=== PATIENT | male | born 1945 | race Caucasian/White ===

== ENCOUNTER 2025-05-08 08:59 | Emergency (ER) | payer MEDICARE, OTHER, SELFPAY ==
[2025-05-08] VITALS (16 sets, daily range): BP systolic 136–158; BP diastolic 73–85; PULSE 69–86; RESP 14–20; TEMP 36.3; O2SAT 89–98; BMI 19.2
--- OUTSIDE RECORDS SUMMARY | 2025-05-08 09:02 | XMS_ITS | Clinical Summary ---
Author Organization [facility] Address [address] [place] [address] Care Team Providers Care Vessel Scrapper Helper Name Role Phone Brian Vasquez DO Primary Care Provider [phone] Allergies No known active allergies Medications * This document contains information received from the source organization and may not represent a complete record from that organization. aspirin 325 mg tablet Take 1 tablet by mouth once daily with a meal. 0 0 Active hydrocortisone 2.5% creamIndication s:Rash Apply topically to affected area(s) 2 times daily. 60 g 1 Active niacinamide 500 mg tablet Take 1 Tablet (500 mg) by mouth once daily. 0 2 Active tamsulosin 0.4 mg capsuleIndicati ons:Nephrolithi asis Take 1 Capsule (0.4 mg) by mouth once daily after a meal. 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 Encounters Date Type Department Care Team Description 04/12/2025 Telephone [facility] [address] [place] [address] Arben Boggs MD Results 04/12/2025 Orders Only [facility] [address] Arben Boggs MD <No scans attached> 04/07/2025 11:00 AM CDT Ancillary Procedure [facility] [place] [address] 04/07/2025 Travel 04/03/2025 Telephone [facility] [address] Arben Boggs MD Results 03/31/2025 2:00 PM CDT Office Visit [facility] [address] [place] [address] Arben Boggs MD UTI (Dark urine ) 03/31/2025 Telephone [facility] [address] Arben Boggs MD Follow Up 03/31/2025 Travel 03/31/2025 Nurse Triage [facility] [address] Brian Vasquez, DO Blood In Urine from Last 3 Months Immunizations Immunization Administration Dates Next Due Inactivated Polio Vaccine 02/13/2023,08/08/2022, 06/02/2022 Influenza Virus, Unspecified 07/08/2018 Influenza, High-dose Inactivated 07/18/2017 Influenza, High-dose Quadriv alent Inactivated 06/25/2023,06/28/2022,07/12/2021 Influenza, IIV3 (Age >=3 years) 07/08/20 14,07/04/2012,08/01/2007,09/14 Influenza, IIV4 (=>6mos) MDV 07/16/2019 Influenza, Inactivated IIV3 (Age 65+ Years) Preserv Free 07/08/2017 Influenza, Injectable, Mdck, Quadrivalent, W/preservative 07/18/2018 Pneumococcal Poly,23-Valent (Pneumovax) 08/05/2012 Pneumococcal conj 13-Valent (Prevnar 13) 03/12/2017 RSV, Recombinant ADJ Reconst ituted (Arexvy 120MCG/0.5mL) 06/25/2023 Td (Age >=7 Years) 10/26/2004 Tdap 02/07/2011 Zoster (Shingrix-RZV, recombinant) 09/01/2019, Zoster (Zostavax-ZVL, live) 02/07/2011 Family History Medical History Relation Name Comments Cataracts Father Kidney nephrosis Father Diabetes Maternal Grandmother Cancer-breast Mother Kidney nephrosis Mother Other Other parkinsons dise ase-grandfather and uncle Relation Name Status Comments Father Maternal Grandmother Mother Other Social History Tobacco Use Types Packs/Day Years Used Date Smoking Tobacco: Never Smokeless Tobacco: Never Tobacco Cessation:Counseling Given: Yes Alcohol Use Standard Drinks/Week Comments Not Currently 0 (1 standard drink = 0.6 oz pure alcohol) social use - maybe 1 time a month PHQ-2 Answer Date Recorded PHQ-2 TOTAL SCORE 0 05/28/2024 Social Connections Answer Date Recorded Do you often feel lonely or isolated from those around you? 0 05/28/2024 Financial Resource Strain Answer Date R ecorded Difficulty of Paying Living Expenses 3 05/28/2024 Difficulty of Paying Living Expenses Not on file 05/28/2024 Food Insecurity Answer Date Recorded Do you worry your food will run out before you are able to buy more? 1 05/28/2024 Transportation Needs Answer Date Record ed Does lack of transportation keep you from medica l appointments? 1 05/28/2024 Does lack of transportation keep you from work, meetings or getting things that you need? 1 05/28/2024 Housing Stability Answer Date Recorded What is your housing situation today? 1 05/28/2024 Utilities Answer Date Recorded Do you have trouble paying f or utilities (for example, heat, electricity, water, phone)? 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 Gender Identity Not on file Sexual Orientation Not on file Occupation Industry Job Start Date Job End Date retired Not on file Not on file Not on file Obstetrics History Last Filed Vital Signs Vital Sign Reading Time Taken Comments Blood Pressure 108/64 03/31/2025 2:06 PM CDT Pulse 89 03/31/2025 2:06 PM CDT Temperature 36.4 C (97.5 F) 05/28/2024 10:06 AM CDT Respiratory Rate 15 12/13/2023 12:05 PM PUBLIC HEALTH PHYSICIAN Oxygen Saturation 94% 03/31/2025 2:06 PM CDT Inhaled Oxygen Concentration - - Weight 61.5 kg (135 lb 9.6 oz) 03/31/2025 2:06 P M CDT Height 176 cm (5' 9.3) 05/28/2024 10:06 AM CDT Body Mass Index 19.85 05/28/2024 10:06 AM CDT Plan of Treatment Upcoming Encounters Date Type Department Care Team (Late st Contact Info) Description 06/01/2025 8:30 AM CDT Office Visit [address] [address] Nelly Galeas PA [address] [place] [address] 06/02/2025 8:20 AM CDT Office Visit [facility] [address] [place] [address] Gary Chowdhury MD [address] [place] [address] Health Maintenance Due Date Last Done Comments Tetanus booster 02/07/2021 02/07/2011, 10/26/2004 BMI (ht and wt on same day) for age 18+ 05/28/2025 05/28/2024, 06/02/2022, 04/28/2021, Additional history exists Depression screening for age 12+ 05/28/2025 05/28/2024, 05/28/2024, 06/05/2022, Additional history exists Medicare Wellness for age 65+ 05/29/2025 05/28/2024, 06/02/2022, 04/28/2021, Additional history exists Influenza Vaccine (#1) 2025 9, 07/18/2018, 07/08/2018, Additional history exists Pneumococcal series for age 50+ Completed 03/12/2017, 08/05/2012 Zoster (shingles) series for age 50+ Completed 09/01/2019, 06/05/2019, 02/07/2011 RSV vaccine for adults or Completed 06/25/2023 COVID-19 vaccine series Completed 03/10/20, 08/25/2024, 07/12/2023, Additional history exists Hepatitis B series for 19+ Aged Out N o longer eligible based on patient's age to complete this topic Procedures Procedure Name Priority Date/Time Associated Diagnosis Comments CT ABDOMEN PELVIS UROGRAM WWO Routine 04/07/2025 11:30 AM CDT Hematuria, unspecified type COMP METABOLIC PANEL Routine 03/31/2025 3:29 PM CDT Proteinuria, unspecified type Bilirubinuria CBC W PLT NO DIFF Routine 03/31/2025 3:2 9 PM CDT Proteinuria, unspecified type Bilirubinuria URINALYSIS MACROSCOPIC - [facility] ONLY POC DIP ([facility]) Routine 03/31/2025 2:38 PM CDT Dark urine URINALYSIS MICROSCOPIC Routine 03/31/2025 2:37 PM CDT Dark urine URINE CULTURE Routine 03/31/2025 2:37 PM CDT Dark urine from Last 3 Months Results * CT ABDOMEN PELVIS UROGRAM O (04/07/2025 11:30 AM CDT) Anatomical Region Laterality Modality Abdomen, Pelvis, KIDNEYS, BLADDER Computed Tomography 2025 1:16 PM CDT Impressions 2025 1:16 PM CDT 1. No significant contrast within the ureters or within the urinary bladder. This limits evaluation. To consider cystoscopy/retrograde pyelogram for further evaluation. 2. Evidence of an 8 millimeter stone at the left ureterovesical junction. Multiple small nonobstructing left renal stones are also noted. No left hydronephrosis. 3. Multiple stones within the right kidney including a 12 millimeter stone within the renal pelvis. No right hydronephrosis. 4. Evidence of multiple small bladder stones. 5. Prominent prostate. Recommend correlation with PSA. Please note that all CT scans at this facility use dose modulation, iterative reconstruction, and/or weight-based dosing when appropriate to reduce radiation dose to as low as reasonably achievable. Dictated by Justin Hagan MD @ 2025 1:16:34 PM (Electronically Signed) Narrative 2025 1:16 PM CDT For Patients: As a result of the Cures Act, medical imaging exams and procedure reports are released immediately into your electronic medical record. You may view this report before your referring provider. If you have questions, please contact your health care provider. INDICATION: Hematuria. TECHNIQUE: CT abdomen and pelvis urogram without and with 100 cc Omnipaque 350 IV contrast. Contrast images were obtained in the nephrographic and delayed phases. COMPARISON: None. FINDINGS: There is mild scarring within the right kidney. The left kidney is grossly normal. 12 millimeter stone is seen within the right renal pelvis. There are multiple nonobstructing stones noted within the right kidney as well the largest measuring 11 millimeters. There are tiny stones noted within the left kidney measuring 3 millimeters. 8 millimeter stone is seen at the region of the left ureterovesical junction. Multiple other calcifications are seen within the region of the left ureter which are favored to represent phleboliths. Symmetric renal enhancement. There are small cysts within the kidneys. Additionally there are subcentimeter hypoattenuating lesions which are too small to further characterize. No hydronephrosis. Minimal opacification of the right ureter with contrast material. Minimal opacification the mid left ureter as well. This limits evaluation. The urinary bladder is distended. There is evidence of bladder stones the largest measuring 10 millimeters. Additionally there are subcentimeter calcifications along the anterior urinary bladder wall. No significant excreted contrast within the urinary bladder. The visualized lung bases are clear. A cyst is seen within the liver as well as subcentimeter hypoattenuating lesions which are too small to further characterize. The gallbladder is decompressed. No biliary ductal dilatation. Spleen is unremarkable. The pancreas is unremarkable. The adrenal glands are normal. Prominent prostate with mass effect on the posterior bladder wall. Indeterminate rectal thickening is noted not well evaluated on CT. The bowel is not well evaluated with clumped decompressed loops of small bowel noted within the left upper quadrant. No evidence of bowel obstruction. No free air or ascites. No definite lymphadenopathy. No acute fracture. Procedure Note Justin Hagan MD - 2025 For Patients: As a result of the Cures Act, medical imagingexams and procedure reports are released immediately into your electronicmedical record. You may view this report before your referring provider.If you have questions, please contact your health care provider. INDICATION: Hematuria. TECHNIQUE: CT abdomen and pelvis urogram without and with 100 cc Omnipaque 350 IVcontrast. Contrast images were obtained in the nephrographic and delayedphases. COMPARISON: None. FINDINGS: There is mild scarring within the right kidney. The left kidney is grosslynormal. 12 millimeter stone is seen within the right renal pelvis. Thereare multiple nonobstructing stones noted within the right kidney as wellthe largest measuring 11 millimeters. There are tiny stones noted withinthe left kidney measuring 3 millimeters. 8 millimeter stone is seen at theregion of the left ureterovesical junction. Multiple other calcificationsare seen within the region of the left ureter which are favored torepresent phleboliths. Symmetric renal enhancement. There are small cysts within the kidneys.Additionally there are subcentimeter hypoattenuating lesions which are toosmall to further characterize. No hydronephrosis. Minimal opacification of the right ureter with contrastmaterial. Minimal opacification the mid left ureter as well. This limitsevaluation. The urinary bladder is distended. There is evidence of bladder stones thelargest measuring 10 millimeters. Additionally there are subcentimetercalcifications along the anterior urinary bladder wall. No significantexcreted contrast within the urinary bladder. The visualized lung bases are clear. A cyst is seen within the liver aswell as subcentimeter hypoattenuating lesions which are too small tofurther characterize. The gallbladder is decompressed. No biliary ductaldilatation. Spleen is unremarkable. The pancreas is unremarkable. Theadrenal glands are normal. Prominent prostate with mass effect on theposterior bladder wall. Indeterminate rectal thickening is noted not wellevaluated on CT. The bowel is not well evaluated with clumped decompressedloops of small bowel noted within the left upper quadrant. No evidence ofbowel obstruction. No free air or ascites. No definite lymphadenopathy. Noacute fracture. IMPRESSION: 1. No significant contrast within the ureters or within the urinarybladder. This limits evaluation. To consider cystoscopy/retrogradepyelogram for further evaluation. 2. Evidence of an 8 millimeter stone at the left ureterovesical junction.Multiple small nonobstructing left renal stones are also noted. No lefthydronephrosis. 3. Multiple stones within the right kidney including a 12 millimeter stonewithin the renal pelvis. No right hydronephrosis. 4. Evidence of multiple small bladder stones. 5. Prominent prostate. Recommend correlation with PSA. Please note that all CT scans at this facility use dose modulation,iterative reconstruction, and/or weight-based dosing when appropriate toreduce radiation dose to as low as reasonably achievable. Dictated by Justin Hagan MD @ 2025 1:16:34 PM (Electronically Signed) us Arben Boggs MD CT Final Resu lt * (ABNORMAL) CBC W PLT NO DIFF (03/31/2025 3:29 PM CDT) WHITE BLOOD CELL COUNT 6.1 3.8 - 10.8 Thousand/u L [facility] RED BLOOD CELL COUNT 4.84 4.20 - 5.80 Million/uL [facility] HEMOGLOBIN 14.3 13.2 - 17.1 g/dL [facility] HEMATOCRIT 44.8 38.5 - 50.0 % [facility] MCV 92.6 80.0 - 100.0 fL [facility] MCH 29.5 27.0 - 33.0 pg [facility] MCHC 31.9(L) 32.0 - 36.0 g/dL [facility] Comment: For adults, a slight decrease in the calculated MCHC value (in the range of 30 to 32 g/dL) is most likely not clinically significant; however, it should be interpreted with caution in correlation with other red cell parameters and the patient's clinical condition. RDW 13.4 11.0 - 15.0 % [facility] PLATELET COUNT 200 140 - 400 Thousand/u L [facility] MPV 12.3 7.5 - 12.5 fL [facility] Blood BLOOD SPECIMEN / Unknown 03/31/2025 3:29 PM CDT 03/31/2025 3:30 PM CDT us Arben Boggs MD HEMATOLOGY Final Resu lt [facility] [address] [place] [address], [facility] [address] [place] [address] * COMP METABOLIC PANEL (03/31/2025 3:29 PM CDT) GLUCOSE 79 65 - 99 mg/dL [facility] Comment: Fasting reference interval UREA NITROGEN (BUN) 25 7 - 25 mg/dL [facility] CREATININE 0.96 0.70 - 1.28 mg/dL [facility] EGFR 80 > OR = 60 mL/min/1. 73m2 [facility] BUN/CREATININE RATIO SEE NOTE: 6 - 22 (calc) [facility] Comment: Not Reported: BUN and Creatinine are within reference range. SODIUM 140 135 - 146 mmol/L [facility] POTASSIUM 4.7 3.5 - 5.3 mmol/L [facility] CHLORIDE 103 98 - 110 mmol/L [facility] CARBON DIOXIDE 28 20 - 32 mmol/L [facility] CALCIUM 9.0 8.6 - 10.3 mg/dL [facility] PROTEIN, TOTAL 6.6 6.1 - 8.1 g/dL [facility] ALBUMIN 3.8 3.6 - 5.1 g/dL [facility] GLOBULIN 2.8 1.9 - 3.7 g/dL (calc) [facility] ALBUMIN/GLOBULIN RATIO 1.4 1.0 - 2.5 (calc) [facility] BILIRUBIN, TOTAL 0.5 0.2 - 1.2 mg/dL [facility] ALKALINE PHOSPHATASE 40 35 - 144 U/L [facility] AST 17 10 - 35 U/L [facility] ALT 10 9 - 46 U/L [facility] Blood BLOOD SPECIMEN / Unknown 03/31/2025 3:29 PM CDT 03/31/2025 3:30 PM CDT Arben Boggs MD CHEMISTRY Final Resu lt Performing Organization Address City/[facility]/ZIP Co de Phone Number [facility] [address] [place] [address], [facility] [address] [place] [address] * (ABNORMAL) POCT Urinalysis Dipstick Only [[id number]] (03/31/2025 2:38 PM CDT) Pathologist [facility] PH 6.0 5.0 - 8.0 [facility] SPECIFIC GRAVITY 1.025 1.001 - 1.035 [facility] GLUCOSE NEGATIVE NEGATIVE [facility] BILIRUBIN 1+(A) NEGATIVE [facility] Comment: A false positive may be caused by the drug Lodine. For any presumptive positive bilirubin, consider confirmation by serum bilirubin if clinically indicated. KETONES NEGATIVE NEGATIVE [facility] OCCULT BLOOD 3+(A) NEGATIVE [facility] PROTEIN 3+(A) NEGATIVE [facility] NITRITE NEGATIVE NEGATIVE [facility] LEUKOCYTE ESTERASE NEGATIVE NEGATIVE [facility] Urine URINE SPECIMEN / Unknown 03/31/2025 2:38 PM CDT 03/31/2025 2:38 PM CDT Arben Boggs MD URINE Final Resu lt Performing Organization Address City/[facility]/ZIP Co de Phone Number [facility] [address] [place] [address], [facility] [address] [place] [address] * (ABNORMAL) URINALYSIS MICROSCOPIC [[id number]] - routine (03/31/2025 2:37 PM CDT) RBC >100(A) 0-2, None Seen /HPF 04/01/2025 1:[address] [facility] WBC 6-10(A) 0-2, 3-5, None Seen /HPF 04/01/2025 1:[address] [facility] BACTERIA None Seen None Seen, Rare, Few Bacteria/ HPF 04/01/2025 1:[address] [facility] EPITHELIAL CELLS None Seen None Seen, Few Epi/HPF 04/01/2025 1:[address] [facility] HYALINE CASTS 0-2 0-2, 3-5 /LPF 04/01/2025 1:[address] [facility] Urine URINE SPECIMEN / Unknown Non-Blood / Unknown 03/31/2025 2:37 PM CDT 03/31/2025 2:37 PM CDT Arben Boggs MD URINE Final Resu lt Performing Organization Address City/State/[facility] Co de Phone Number [facility] [address] [place] [address], * URINE CULTURE [[id number]] (03/31/2025 2:37 PM CDT) CULTURE <10,000 CFU/mL multiple organisms 04/02/2025 10:44 AM CDT [facility] Urine URINE SPECIMEN / Unknown Non-Blood / Unknown 03/31/2025 2:37 PM CDT 03/31/2025 2:37 PM CDT Arben Boggs MD MICROBIOLOGY Final Resu lt [facility] [address] [place] [address], [place] from Last 3 Months Insurance MEDICARE PB ONLY MEDICARE PART A HB ONLY Care Teams Vessel Scrapper Helper Relationship Specialty Start Date End [place] [address] PCP - General Family Practice 06/02/22
--- NOTE | 2025-05-08 09:56 | ED_ITS ---
HPI - General Adult General Chief complaint: Flank Pain Stated complaint: Kidney stone Time Seen by Provider: 05/08/25 09:34 History of Present Illness HPI narrative: Patient here with right lower abdominal pain, has a known kidney stone on that side diagnosed a month ago through an [facility] site. 80-year-old man presenting to the emergency department with continued right lower abdominal pain following diagnosis of an 8 mm stone at the right ureteral vesicular junction in a CT scan from April 07. Symptoms seem to have begun with dark urine on March 30. Duration of symptoms now about 5 weeks. He continues to have pretty intense pain, cramping at the right low abdomen. Intermittent bouts of nausea. No fever. Urine seems to have cleared. He continues to urinate regularly. No history of heart failure. Related Data Home Medications ?Medication ?Instructions ?Recorded ?Confirmed aspirin 325 mg capsule 325 mg PO DAILY 05/08/2511/01 tamsulosin 0.4 mg capsule 0.4 mg PO DAILY 05/08/2511/01 Allergies Allergy/AdvReac Type Severity Reaction Status Date / Time No Known Drug Allergies Allergy Verified 05/08/25 09:19 Review of Systems Status of ROS: Reports: 6 or more systems reviewed and unremarkable except as noted in History and below Exam Narrative: Exam Narrative: Pleasant. Slim. Hand resting at his right low abdomen. Skin is warm and dry. Well-perfused peripherally. No extremity edema. Breathing easily. Heart in regular rate and rhythm. Abdomen is soft flat. He is moderately tender to palpation in the right low abdomen. Without peritoneal signs. Const: Vital Signs, click to edit/add: Vital Signs - 24 hr 05/08/25 09:24 05/08/25 10:36 05/08/25 10:41 Temperature 97.3 F L Pulse Rate 81 81 Pulse Rate [Pulse Oximeter] 69 Respiratory Rate 20 Blood Pressure 153/85 H Blood Pressure [Ri ght Upper Arm] 158/82 H Pulse Oximetry 95 98 95 Oxygen Delivery Me thod Room Air 05/08/25 10:45 05/08/25 11:00 05/08/25 11:02 Temperature Pulse Rate 82 78 82 Pulse Rate [Pulse Oximeter] Respiratory Rate 14 Blood Pressure 141/76 H Blood Pressure [Ri ght Upper Arm] Pulse Oximetry 89 95 96 Oxygen Delivery Me thod 05/08/25 11:15 05/08/25 11:22 05/08/25 11:30 Temperature Pulse Rate 80 73 86 Pulse Rate [Pulse Oximeter] Respiratory Rate Blood Pressure 139/77 Blood Pressure [Ri ght Upper Arm] Pulse Oximetry 94 97 95 Oxygen Delivery Me thod 05/08/25 11:41 05/08/25 11:45 05/08/25 12:00 Temperature Pulse Rate 73 72 72 Pulse Rate [Pulse Oximeter] Respiratory Rate Blood Pressure 136/73 Blood Pressure [Ri ght Upper Arm] Pulse Oximetry 96 97 96 Oxygen Delivery Me thod 05/08/25 12:02 05/08/25 12:03 05/08/25 12:15 Temperature Pulse Rate 78 78 78 Pulse Rate [Pulse Oximeter] Respiratory Rate 16 Blood Pressure 147/78 H Blood Pressure [Ri ght Upper Arm] Pulse Oximetry 96 96 96 Oxygen Delivery Me thod 05/08/25 12:22 Temperature Pulse Rate 79 Pulse Rate [Pulse Oximeter] Respiratory Rate Blood Pressure 142/76 H Blood Pressure [Ri ght Upper Arm] Pulse Oximetry 96 Oxygen Delivery Me thod Documenting provider has reviewed patient's vital signs: yes Course Vital Signs Vital signs: Initial Vital Signs Temperature 97.3 F L 05/08/25 09:24 Temperature Source Temporal Artery Scan 05/08/25 09:24 Pulse Rate 69 05/08/25 09:24 Pulse Rhythm Regular 05/08/25 09:24 Respiratory Rate 20 05/08/25 09:24 Blood Pressure 158/82 H 05/08/25 09:24 Blood Pressure Mean 107 H 05/08/25 09:24 Blood Pressure Position Sitting 05/08/25 09:24 Pulse Oximetry 95 05/08/25 09:24 Oxygen Delivery Method Room Air 05/08/25 09:24 Vital Signs Temperature 97.3 F L 05/08/25 09:24 Pulse Rate 69 05/08/25 09:24 Respiratory Rate 20 05/08/25 09:24 Blood Pressure 158/82 H 05/08/25 09:24 Pulse Oximetry 95 05/08/25 09:24 Oxygen Delivery Method Room Air 05/08/25 09:24 Temperature 97.3 F L 05/08/25 09:24 Pulse Rate 79 05/08/25 12:22 Respiratory Rate 16 05/08/25 12:02 Blood Pressure 142/76 H 05/08/25 12:22 Pulse Oximetry 96 08/01/25 12:22 Oxygen Delivery Method Room Air 05/08/25 09:24 Medications Administered Medications: Discontinued Medications Generic Name Dose Route Start Last Admin Trade Name Kendra PRN Reason Stop Dose Admin Sodium Chloride 1,000 mls @ 1,000 mls/hr 05/08/25 10:05 05/08/25 11:25 0.9 % Sodium Chloride 1000 Ml IV 05/08/25 11:04 Infused .Q1H ONE Infusion Ketorolac Tromethamine 30 mg 05/08/25 10:05 05/08/25 10:28 Ketorolac 30 Mg/Ml Inj IVP 05/08/25 10:06 30 mg ONCE ONE Administration Morphine Sulfate 4 mg 05/08/25 10:05/08/25 10:28 Morphine 4 Mg/Ml Inj IVP 05/08/25 10:06 4 mg ONCE ONE Administration Medical Decision Making MDM Narrative Medical decision making narrative: Duration of pain and location is consistent with imaging and likely kidney stone. I suppose appendicitis could be in differential as well but likely clinically. Will try to verify persistent presence of stone maybe start with a KUB and check labs for renal function and potential infection. Sounds like will need some procedural/surgical intervention here. The, normal saline, ketorolac, morphine. Does not feel he needs anything for nausea at this time. KUB independent reviewed by me looks to show number phleboliths. I do measure out what I think is is likely ureteral stone in the right pelvis. Measures approximately 8 mm. Radiology noting it to be inconclusive. Labs are generally reassuring, without evidence of infection and pain is markedly improved with treatment as above. Feels he can discharge home. I did manage to reach Dr. Mahmood with [facility] the likely the group that is seeing Mr. Zhang in [place] on June 04. They will reach out to arrange more urgent intervention. Recommending ketorolac. See patient discharge plan for further discussion I discussed your case with Dr. Mahmood with [facility] today. Expect a call from them to schedule you for procedure this coming week. In the meantime am prescribing you some ketorolac similar to ibuprofen for pain. Also some [place] from [facility]. This is an opiate. Remember that each tablet contains 325 mg of acetaminophen. Continue with your Flomax (tamsulosin) pending stone passage. Should you have uncontrolled pain, fever, please return Medical Records Medical records reviewed: Yes I reviewed the patient's medical records Lab Data Lab results reviewed: Yes I reviewed the patient's lab results Labs: Lab Results 05/08/25 05/08/25 Range/Units 10:15 12:34 WBC 8.09 (4.50-11.00) K/uL RBC 5.03 (4.30-5.90) m/uL Hgb 15.0 (13.5-17.5) gm/dL Hct 46.2 (37.0-53.0) % MCV 92 (80-100) fL MCH 30 (26-34) pg MCHC 33 (32-36) gm/dL RDW Coeff of James 13.7 (11.5-15.5) % Plt Count 192 (140-440) K/uL Neut % (Auto) 78.4 H (42.0-72.0) % Lymph % (Auto) 11.2 L (20-44) % [place] % (Auto) 6.3 (0.0-11.0) % Eos % (Auto) 3.6 (0.0-7.0) % Baso % (Auto) 0.4 (0.0-3.0) % Neut # (Auto) 6.30 (1.7-7.0) K/uL Lymph # (Auto) 0.90 (0.90-2.90) K/uL [place] # (Auto) 0.50 (0.00-0.90) K/UL Eos # (Auto) 0.29 (0.00-0.50) K/uL Baso # (Auto) 0.03 (0.00-0.30) K/uL Abs Immat Gran (auto) 0.01 (0.00-0.30) K/uL Imm/Tot Granulo (auto) 0.1 % Sodium 138 (135-149) mmol/L Potassium 4.0 (3.6-5.1) mmol/L Chloride 103 (96-114) mmol/L Carbon Dioxide 27 (20-32) mmol/L Anion Gap 8 (7-15) mEq/L BUN 23 (7-30) mg/dL Creatinine 0.9 (0.5-1.5) mg/dL Estimated Creat Clear 49.14 Estimated GFR 86 ml/min Glucose 122 H (60-115) mg/dL Calcium 9.1 (8.4-10.6) mg/dL Urine Color Yellow (Yellow) Urine Appearance Clear (Clear) Urine pH 6.5 (5.0-8.5) Ur Specific [place] 1.020 (1.000-1.030) Urine Protein Negative (Negative) Urine Glucose (UA) Negative (Negative) Urine Ketones 3+ A (Negative) Urine Blood Negative (Negative) Urine Nitrite Negative (Negative) Urine Bilirubin Negative (Negative) Urine Urobilinogen 0.2 (0.2-1.0) Ur Leukocyte Esterase Negative (Negative) Urine RBC 0-2 (0-2) Urine WBC 0-2 (0-5) Ur Squamous Epith Cells None (None-Few) Urine Bacteria None (None) Discharge Plan Discharge Clinical Impression: Right distal ureteral calculus, Ureteral colic Patient Disposition: Home w/ Parent or Adult Condition: Improved Additional Instructions: I discussed your case with Dr. Mahmood with [facility] today. Expect a call from them to schedule you for procedure this coming week. In the meantime am prescribing you some ketorolac similar to ibuprofen for pain. Also some [place] from [facility]. This is an opiate. Remember that each tablet contains 325 mg of acetaminophen. Continue with your Flomax (tamsulosin) pending stone passage. Should you have uncontrolled pain, fever, please return Prescriptions: No Action tamsulosin 0.4 mg capsule 0.4 mg PO DAILY aspirin 325 mg capsule 325 mg PO DAILY Follow Up/Referrals: Gary Chowdhury MD [Primary Care Provider, [facility]] Stand Alone Forms: [employer] Info Instructions
--- NOTE | 2025-05-08 10:05 | CRLHL7_ITS ---
For Patients: As a result of the Century Cures Act, medical imaging exams and procedure reports are released immediately into your electronic medical record. You may view this report before your referring provider. If you have questions, please contact your health care provider. INDICATION: Right-sided abdominal pain, confirm stone at right ureterovesicular junction. COMPARISON: CT 04/09/2025 TECHNIQUE: 1 view abdomen, supine. FINDINGS: Devices: None. Moderate stool. No dilated bowel. No unusual mass effect. Prior hernia repair with mesh. There are several nonobstructing right renal calculi. There are extensive phleboliths in the pelvis. No definite right ureterovesicular junction distribution calcification. IMPRESSION: Exam confounded by pelvic phleboliths. No definite calculus seen at the level of the right ureterovesicular junction. Dictated by Tayler Stoll MD @ 05/08/2025 10:42:20 AM (Electronically Signed)
[2025-05-08 10:26] LABS: Hematocrit 46.2 % (37.0-53.0); Hemoglobin* 15.0 gm/dL (13.5-17.5); Mean Corpuscular HGB Conc 33 gm/dL (32-36); Mean Corpuscular Hemoglobin 30 pg (26-34); Mean Corpuscular Volume 92 fL (80-100); RDW Coefficient of Variation % 13.7 % (11.5-15.5); Red Blood Count 5.03 m/uL (4.30-5.90); White Blood Count* 8.09 K/uL (4.50-11.00)
[2025-05-08 10:27] LABS: Immature Granulocytes Abs Auto 0.01 K/uL (0.00-0.30); Immature Granulocytes Pct Auto 0.1 %
[2025-05-08] MEDS: MORPHINE 4 MG/ML INJ IVP (10:28)
[2025-05-08 10:37] LABS: Lymphocytes Absolute Auto 0.90 K/uL (0.90-2.90); Slide Review Reflex No
[2025-05-08 10:44] LABS: Chloride* 103 mmol/L (96-114)
[2025-05-08 10:45] LABS: Potassium* 4.0 mmol/L (3.6-5.1); Sodium* 138 mmol/L (135-149)
[2025-05-08 10:47] LABS: Blood Urea Nitrogen* 23 mg/dL (7-30); Creatinine* 0.9 mg/dL (0.5-1.5); Est. Creatinine Clearance* 49.14; Estimated Glomerular Filt Rate 86 ml/min
[2025-05-08 10:48] LABS: Anion Gap 8 mEq/L (7-15); Calcium* 9.1 mg/dL (8.4-10.6); Carbon Dioxide* 27 mmol/L (20-32); Glucose* 122 mg/dL (60-115)
[2025-05-08 12:41] LABS: Appearance Urine Clear (Clear)
== END 2025-05-08 13:21 | disposition home or self-care (01) ==
PROVIDERS: Emergency Provider Family Medicine; PCP Family Medicine
DX: N20.1 Calculus of ureter (principal)
CPT/HCPCS: 36415; 74018; 80048; 81001; 85025; 94761; 96374; 96375; 99284; J1885; J2270; J7030

== ENCOUNTER 2025-06-19 01:32 | Emergency (ER) | payer MEDICARE, OTHER, SELFPAY ==
--- OUTSIDE RECORDS SUMMARY | 2025-06-19 01:34 | XMS_ITS | Clinical Summary ---
Author Organization [employer] [facility] Address [address] [place] [address] Care Team Providers Care Glaze Carrier Name Role Phone Nelly Galeas Unavailable [phone] Gary Chowdhury MD Primary Care Provider + Allergies No known active allergies Medications * This document contains information received from the source organization and may not represent a complete record from that organization. aspirin 325 mg tablet Take 1 tablet by mouth once daily with a meal. 0 0 Active hydrocortisone 2.5% creamIndicatio ns:Rash Apply topically to affected area(s) 2 times daily. 60 g 1 Active niacinamide 500 mg tablet Take 1 Tablet (500 mg) by mouth once daily. 0 2 Active timoloL maleate (TIMOPTIC) 0.25 % ophthalmic solution Place 1 Drop into right eye two times daily. 5 Active tamsulosin (Flomax) 0.4 mg capsuleIndicat ions:Lower urinary tract symptoms (LUTS),Incompl ete emptying of bladder Take 1 Capsule (0.4 mg) by mouth once daily after a meal. 90 Capsule 3 5 Active ketoconazole 2% shampoo (NIZORAL) 2 % shampoo As directed 1 Dose 2 times daily if needed (when showering). 5 Active mupirocin 2% ointment Apply 1 Dose topically to affected area(s) once daily if needed (as needed). 5 Active oxybutynin (DITROPAN) 5 mg tabletIndicati ons:Bladder spasm Take 1 Tablet (5 mg) by mouth three times daily. 15 Tablet 5 Active tamsulosin 0.4 mg capsuleIndicat ions:Nephrolit hiasis Take 1 Capsule (0.4 mg) by mouth once daily after a meal. 30 Capsule 5 06/02/20 25 Discontinue d(Duplicate therapy (E-cancel not sent)) Active Problems Problem Noted Date Diagnosed Date Colon polyp 05/21/2012 Overview (12/14/2023): Colonoscopy 05/2012 polyp repeat in 5 years Colonoscopy 11/2018 normal, repeat in 5 years Colonoscopy 12/2023 SSA, repeat in 5 years Vasomotor rhinitis 08/19/2009 Insomnia, unspecified 08/19/2009 Headache(784.0) 08/16/2009 Calculus of kidney 05/22/2007 Encounters Date Type Department Care Team Description 06/12/2025 1:14 PM CDT Anesthesia Event [address] [address] Ronnie Lisa DO [place], Lindsey Jo, CRNA 06/12/2025 11:45 AM CDT - 06/12/2025 12:47 PM CDT Surgery [address] [address] Wayne Love MD Cystoscopy, bilateral ureteroscopy, Right laser lithotripsy, bilateral ureteral stent placement and bilateral retrograde pyelogram 06/12/2025 9:45 AM CDT - 06/12/2025 4:25 PM CDT Hospital Encounter [address] [address] Wayne Love MD Bladder spasm (Primary Dx) Discharge Disposition: Home Self Care 06/12/2025 9:42 AM CDT - 06/12/2025 9:43 AM CDT Emergency [address] [address] 06/12/2025 Orders Only [facility] [address] [place] [address] Nelly Galeas PA <No scans attached> 06/12/2025 Travel 06/02/2025 8:20 AM CDT Office Visit [facility] [address] [place] [address] Gary Chowdhury MD Medicare ANNUAL (subsequent) Visit (80 year old male); Preoperative Exam (06/12/25, kidney stones, Mary Tanika) 06/01/2025 9:55 AM CDT - 06/01/2025 11:59 PM CDT Hospital Encounter [facility] [address] [place] [address] Nelly Galeas PA Left ureteral stone 06/01/2025 8:30 AM CDT Office Visit [facility] [address] [place] [address] Nelly Galeas PA Consult (N20.0 (ICD-10-CM) - Nephrolithiasis) 06/01/2025 Travel 05/14/2025 Telephone [facility] [address] [place] [address] Brian Vasquez, DO Questions 04/12/2025 Telephone [facility] [address] [place] [address] Arben Boggs MD Results 04/12/2025 Orders Only [facility] [address] [place] [address] Arben Boggs MD <No scans attached> 04/07/2025 11:00 AM CDT Ancillary Procedure [facility] [address] [place] [address] 04/07/2025 Travel 04/03/2025 Telephone [facility] [address] [place] [address] Arben Boggs MD Results 03/31/2025 2:00 PM CDT Office Visit [facility] [address] [facility] [address] Arben Boggs MD UTI (Dark urine ) 03/31/2025 Telephone [facility] [address] [place] [address] Arben Boggs MD Follow Up 03/31/2025 Travel 03/31/2025 Nurse Triage [facility] [address] [place] [address] Brian Vasquez, DO Blood In Urine from Last 3 Months Immunizations Immunization Administration Dates Next Due Inactivated Polio Vaccine 02/13/2023,08/08/2022, 06/02/2022 Influenza Virus, Unspecified 07/08/2018 Influenza, High-dose Inactivated 07/14/2024,07/08 Influenza, High-dose Quadriv alent Inactivated 06/25/2023,06/28/2022,07/12/2021 Influenza, [...] Given: Yes Alcohol Use Standard Drinks/Week Comments Yes 0 (1 standard drink = 0.6 oz pure alcohol) social use - maybe 1 time a year PHQ-2 Answer Date Recorded PHQ-2 TOTAL SCORE 0 06/02/2025 Social Connections Answer Date Recorded Do you often feel lonely or isolated from those around you? 0 06/02/2025 Financial Resource Strain Answer Date R ecorded Difficulty of Paying Living Expenses 3 06/02/2025 Difficulty of Paying Living Expenses Not on file 06/02/2025 Food Insecurity Answer Date Recorded Do you worry your food will run out before you are able to buy more? 1 06/02/2025 Transportation Needs Answer Date Record ed Does lack of transportation keep you from medica l appointments? 1 06/02/2025 Does lack of transportation keep you from work, meetings or getting things that you need? 1 06/02/2025 Housing Stability Answer Date Recorded What is your housing situation today? 1 06/02/2025 Utilities Answer Date Recorded Do you have trouble paying f or utilities (for example, heat, electricity, water, phone)? 1 06/02/2025 Sex and Gender Information Value Date Recorded Sex Assigned at Not on file Legal Sex Male 6:06 AM [employer] Gender Identity Not on file Sexual Orientation Not on file Occupation Industry Job Start Date Job End Date retired Not on file Not on file Not on file Obstetrics History Last Filed Vital Signs Vital Sign Reading Time Taken Comments Blood Pressure 123/71 06/12/2025 4:00 PM CDT Pulse 69 06/12/2025 4:00 PM CDT Temperature 36.2 C (97.1 F) 06/12/2025 3:05 PM CDT Respiratory Rate 16 06/12/2025 4:00 PM CDT Oxygen Saturation 97% 06/12/2025 4:00 PM CDT Inhaled Oxygen Concentration - - Weight 60.2 kg (132 lb 12.8 oz) 06/12/2025 9:57 AM CDT Height 175.8 cm (5' 9.2) 06/02/2025 8:35 AM CDT Body Mass Index 19.5 06/02/2025 8:35 AM CDT Plan of Treatment Upcoming Encounters Date Type Department Care Team (Late st Contact Info) Description 06/22/2025 9:30 AM CDT Office Visit [facility] [address] [facility] [place] [phone] Oleksandr Myers MD [address] [place] [address] Health Maintenance Due Date Last Done Comments Tetanus booster 02/07/2021 02/07/2011, 10/26/2004 Influenza Vaccine (#1) 2025 , 07/16/2019, 07/18/2018, Additional history exists BMI (ht and wt on same day) for age 18+ 06/02/2026 06/02/2025, 05/28/2024, 06/02/2022, Additional history exists Depression screening for age 12+ 06/02/2026 06/02/2025, 05/28/2024, 05/28/2024, Additional history exists Medicare Wellness for age 65+ 06/03/2026 06/02/2025, 05/28/2024, 06/02/2022, Additional history exists Pneumococcal series for age 50+ Completed 03/12/2017, 08/05/2012 Zoster (shingles) series for age 50+ Completed 09/01/2019, 06/05/2019, 02/07/2011 RSV vaccine for adults or Completed 06/25/2023 COVID-19 vaccine series Completed 03/10/20, 08/25/2024, 07/12/2023, Additional history exists Hepatitis B series for 19+ Aged Out N o longer eligible based on patient's age to complete this topic Medical Devices Implanted Type Area Price Economist Device Identifier Shelf Expiration Date Model / Serial / Lot Stent Uret [id number] [employer] - [id number] Implanted:Qty: 1 on 06/12/2025 by Wayne Love MD at [facility] 01/14/2028 [id number] / / [id number] Stent Uret [id number] [employer] - [id number] Implanted:Qty: 1 on 06/12/2025 by Wayne Love MD at [facility] Left: Ureter [facility] 01/13/2028 [id number] / / [id number] Procedures Procedure Name Priority Date/Time Associated Diagnosis Comments XR RETROGRADE PYELOGRAM W/WO KUB Routine 06/12/2025 2:21 PM CDT SUPRAGLOTTIC-LMA Routine 06/12/2025 1:38 PM CDT URETEROSCOPY LASER 06/12/2025 1: 09 PM CDT Nephrolithiasis Left ureteral stone Case Notes Lithotomy LARGE C ARM HOLMIUM LASER [id number]- [id number], conf'd via ph 06/11 0946 Special Needs CHART Monica Chowdhury M.D....... 06/02/2025 8:42 PM OR IMAGE CAPTURE Routine 06/12/2025 12:15 PM CDT SCAN-CARDIAC STRIP 06/12/2025 12:[address] ABDOMEN PELVIS STONE PROTOCOL WO STAT 06/01/2025 10:32 AM CDT Left ureteral stone LIPID PANEL W REFLEX MEASURED LDL Add On 06/01/2025 9:42 AM CDT Cholesterol serum decreased ALT (SGPT) Add On 06/01/2025 9:42 AM CDT Cholesterol serum decreased BASIC METABOLIC PANEL STAT 06/01/2025 9:42 AM CDT Left ureteral stone URINE CULTURE Routine 06/01/2025 9:20 AM CDT Left ureteral stone UA W/ SEDIMENT EXAM REFLEXED PER CRITERIA STAT 06/01/2025 9:20 AM CDT Left ureteral stone [place] KVNG POST-VOIDING RESIDUAL URINE&/BLADDER CAP Routine 06/01/2025 12:00 AM CDT Lower urinary tract symptoms (LUTS) CT ABDOMEN PELVIS UROGRAM WWO Routine 04/07/2025 11:30 AM CDT Hematuria, unspecified type COMP METABOLIC PANEL Routine 03/31/2025 3:29 PM CDT Proteinuria, unspecified type Bilirubinuria CBC W PLT NO DIFF Routine 03/31/2025 3:2 9 PM CDT Proteinuria, unspecified type Bilirubinuria URINALYSIS MACROSCOPIC - [facility] ONLY POC DIP ([facility]) Routine 03/31/2025 2:38 PM CDT Dark urine URINALYSIS MICROSCOPIC Routine 03/31/2025 2:37 PM CDT Dark urine URINE CULTURE Routine 03/31/2025 2:37 PM CDT Dark urine from Last 3 Months Results * XR RETROGRADE PYELOGRAM W/WO KUB (06/12/2025 2:21 PM CDT) Anatomical Region Laterality Modality KIDNEYS, Abdomen X-Ray Angiograp hy 06/12/2025 2:21 PM CDT Narrative 06/12/2025 4:16 PM CDT For Patients: As a result of the Cures Act, medical imaging exams and procedure reports are released immediately into your electronic medical record. You may view this report before your referring provider. If you have questions, please contact your health care provider. EXAM: XR RETROGRADE PYELOGRAM W/WO KUB LOCATION: [facility] DATE: 06/12/2025 INDICATION: Nephrolithiasis COMPARISON: None. TECHNIQUE: Exam performed by urologist. RADIATION DOSE: DUSTIN 2.97 mGy FINDINGS: Limited views of the upper abdomen obtained during the bilateral retrograde pyelograms and bilateral double-J ureteral stent placement. Procedure Note Justin Boateng MD - 06/12/2025 For Patients: As a result of the Cures Act, medical imagingexams and procedure reports are released immediately into your electronicmedical record. You may view this report before your referring provider.If you have questions, please contact your health care provider. EXAM: XR RETROGRADE PYELOGRAM W/WO KUB LOCATION: [facility] DATE: 06/12/2025 INDICATION: Nephrolithiasis COMPARISON: None. TECHNIQUE: Exam performed by urologist. RADIATION DOSE: DUSTIN 2.97 mGy FINDINGS: Limited views of the upper abdomen obtained during the bilateralretrograde pyelograms and bilateral double-J ureteral stent placement. Wayne Love MD GENERAL IMAGING Final Result * HCHG MASK PR5 (06/12/2025 1:38 PM CDT) Narrative [facility], SCREEN TENDER - 06/12/2025 1:38 PM CDT [facility], LISA 06/12/2025 1:38 PM Procedure: Supraglottic Patient location during procedure: OR Supraglottic Airway Properties Mask Ventilation: easy Type: unique Tube Size: 5 Insertion Attempts: 1 Placement Verification: auscultation and CO2 detection Assessment Assessment: atraumatic and dentition unchanged Airway Intervention: check minimal leak and secured Ronnie Lisa DO ANESTHESIA PX NOTE GEOVANI BENITEZ Final Result * SCAN-CARDIAC STRIP (06/12/2025 12:00 AM CDT) Narrative 06/12/2025 12:00 AM CDT Ordered by an unspecified provider. Other Clinical Staff OTHER Final Resul t * CT ABDOMEN PELVIS STONE PROTOCOL WO (06/01/2025 10:32 AM CDT) Anatomical Region Laterality Modality Abdomen, Pelvis, AORTA, LIVER, SPLEEN Computed Tomography 06/01/2025 10:5 8 AM CDT Impressions 06/01/2025 10:58 AM CDT 1. Persistent 7 millimeter calcification within the region of the left ureterovesical junction. Tiny nonobstructing left renal stone. Prominent left renal pelvis without overt hydronephrosis. 2. Persistent 12 millimeter stone within the right renal pelvis with multiple nonobstructing right renal calculi. 3 millimeter stone is seen within the urinary bladder adjacent to the right ureterovesical junction. Dilated right renal pelvis with borderline right hydronephrosis. 3. Slight increase in dependent bladder stones. 4. Prominent prostate with mass effect on the posterior bladder wall. Recommend correlation with urinalysis, urine cytology and PSA. 5. Indeterminate gastric thickening, likely due to underdistention. Recommend correlation with epigastric pain. Please note that all CT scans at this facility use dose modulation, iterative reconstruction, and/or weight-based dosing when appropriate to reduce radiation dose to as low as reasonably achievable. Dictated by Justin Hagan MD @ 06/01/2025 10:58:18 AM (Electronically Signed) Narrative 06/01/2025 10:58 AM CDT For Patients: As a result of the Cures Act, medical imaging exams and procedure reports are released immediately into your electronic medical record. You may view this report before your referring provider. If you have questions, please contact your health care provider. INDICATION: Known left UVJ stone. TECHNIQUE: CT abdomen and pelvis without contrast. COMPARISON: 04/07/2025. FINDINGS: Grossly unchanged minimal ground-glass within inferior lingula lobe. The liver is unchanged in appearance. Cyst is seen within the anterior liver. The gallbladder is partially distended. No gross biliary ductal dilatation. Spleen is unremarkable. The pancreas is grossly unremarkable on this unenhanced CT examination. Adrenal glands are unremarkable. Lobulated appearance of the right kidney is unchanged. The left kidney is normal in appearance. A persistent stone is seen within the right renal pelvis measuring approximately 12 millimeters. There are multiple other nonobstructing right renal stones noted. Tiny nonobstructing left renal stone is unchanged. Dilated renal pelvis bilaterally. There is borderline right hydronephrosis. There is a persistent 7 millimeter calcification at the level of the left ureterovesical junction. A persistent calcification is seen within the right urinary bladder just adjacent to the UVJ measuring 3 millimeters (series 2, image 182). The urinary bladder is partially distended. Dependent bladder stones are seen which do appear to be slightly increased compared to the prior (176). There is stool throughout the colon which appears nondilated. The appendix is obscured. The small bowel is nondilated without evidence of a small-bowel obstruction. There is indeterminate thickening of the mid stomach. No free air. No ascites. No organized drainable fluid collection. Prominent prostate with mass effect on the posterior bladder wall. Aorta is not aneurysmal. Bone windows demonstrate no suspicious lytic or sclerotic lesion. Procedure Note Justin Hagan MD - 06/01/2025 For Patients: As a result of the Century Cures Act, medical imagingexams and procedure reports are released immediately into your electronicmedical record. You may view this report before your referring provider.If you have questions, please contact your health care provider. INDICATION: Known left UVJ stone. TECHNIQUE: CT abdomen and pelvis without contrast. COMPARISON: 04/07/2025. FINDINGS: Grossly unchanged minimal ground-glass within inferior lingula lobe. The liver is unchanged in appearance. Cyst is seen within the anteriorliver. The gallbladder is partially distended. No gross biliary ductaldilatation. Spleen is unremarkable. The pancreas is grossly unremarkableon this unenhanced CT examination. Adrenal glands are unremarkable. Lobulated appearance of the right kidney is unchanged. The left kidney isnormal in appearance. A persistent stone is seen within the right renalpelvis measuring approximately 12 millimeters. There are multiple othernonobstructing right renal stones noted. Tiny nonobstructing left renalstone is unchanged. Dilated renal pelvis bilaterally. There is borderlineright hydronephrosis. There is a persistent 7 millimeter calcification atthe level of the left ureterovesical junction. A persistent calcificationis seen within the right urinary bladder just adjacent to the UVJmeasuring 3 millimeters (series 2, image 182). The urinary bladder ispartially distended. Dependent bladder stones are seen which do appear bridger slightly increased compared to the prior (176). There is stool throughout the colon which appears nondilated. The appendixis obscured. The small bowel is nondilated without evidence of asmall-bowel obstruction. There is indeterminate thickening of the midstomach. No free air. No ascites. No organized drainable fluid collection. Prominent prostate with mass effect on the posterior bladder wall. Aorta is not aneurysmal. Bone windows demonstrate no suspicious lytic or sclerotic lesion. IMPRESSION: 1. Persistent 7 millimeter calcification within the region of the leftureterovesical junction. Tiny nonobstructing left renal stone. Prominentleft renal pelvis without overt hydronephrosis. 2. Persistent 12 millimeter stone within the right renal pelvis withmultiple nonobstructing right renal calculi. 3 millimeter stone is seenwithin the urinary bladder adjacent to the right ureterovesical junction.Dilated right renal pelvis with borderline right hydronephrosis. 3. Slight increase in dependent bladder stones. 4. Prominent prostate with mass effect on the posterior bladder wall.Recommend correlation with urinalysis, urine cytology and PSA. 5. Indeterminate gastric thickening, likely due to underdistention.Recommend correlation with epigastric pain. Please note that all CT scans at this facility use dose modulation,iterative reconstruction, and/or weight-based dosing when appropriate toreduce radiation dose to as low as reasonably achievable. Dictated by Justin Hagan MD @ 06/01/2025 10:58:18 AM (Electronically Signed) us Nelly MEYERS CT Final Res ult * LIPID PANEL W REFLEX MEASURED LDL (06/01/2025 9:42 AM CDT) CHOLESTEROL,TOTAL 163 100 - 199 mg/dL 06/03/2025 12:00 AM CDT [facility] Comment: Cholesterol, Total Reference Ranges Desirable <200 mg/dL Borderline 200-239 mg/dL High >=240 mg/dL TRIGLYCERIDES 83 <150 mg/dL 06/03/2025 12:00 AM CDT [facility] HDL CHOLESTEROL 57 >40 mg/dL 12:00 AM CDT [facility] NON-HDL CHOLESTEROL 106 <145 mg/dl 06/03/2025 12:00 AM CDT [facility] CHOL/HDL RATIO 2.86 <4.50 06/03/2025 12:00 AM CDT [facility] LDL CHOLESTEROL 89 <=130 mg/dL 06/03/2025 12:00 AM CDT [facility] [employer] VLDL CHOLESTEROL 17 <=30 mg/dL 06/03/2025 12:00 AM CDT [facility] [employer]-[facility] PROVIDER ORDERED STATUS RANDOM 06/03/2025 12:00 AM CDT [facility] [employer] Blood BLOOD SPECIMEN / Unknown [facility] Collect / Unknown 06/01/2025 9:42 AM CDT 06/01/2025 9:42 AM CDT us Gary Chowdhury MD CHEMISTRY Final Re sult [facility] [address] [place] [address], * ALT (SGPT) (06/01/2025 9:42 AM CDT) Pathologist [facility] ALT (SGPT) 12 10 - 50 IU/L 06/02/2025 9:40 AM CDT [facility] Blood BLOOD SPECIMEN / Unknown [facility] Collect / Unknown 06/01/2025 9:42 AM CDT 06/01/2025 9:42 AM CDT Gary Chowdhury MD CHEMISTRY Final Re sult Performing Organization Address [facility] Co de Phone Number [facility] [address] [place] [address] * (ABNORMAL) BASIC METABOLIC PANEL (06/01/2025 9:42 AM CDT) Pathologist [facility] SODIUM 142 136 - 145 mmol/L 06/01/2025 10:[address] [facility] POTASSIUM 4.4 3.5 - 5.1 mmol/L 06/01/2025 10:[address] [facility] CHLORIDE 105 98 - 107 mmol/L 06/01/2025 10:[address] [facility] CO2,TOTAL 28 22 - 29 mmol/L 06/01/2025 10:[address] [facility] ANION GAP 9 5 - 18 06/01/2025 10:[address] [facility] GLUCOSE 84 70 - 99 mg/dL 06/01/2025 10:[address] [facility] CALCIUM 9.1 8.8 - 10.4 mg/dL 06/01/2025 10:[address] [facility] Comment: Reference ranges for this test were updated on 08/12/2024 to reflect our healthy population more accurately. Reference range changes are not retroactively applied to results, but previous results using the same methodology can be interpreted in the context of the new reference range. BUN 19 8 - 23 mg/dL 06/01/2025 10:15 AM CDT [facility] CREATININE 0.85 0.70 - 1.20 mg/dL 06/01/2025 10:15 AM CDT [facility] BUN/CREAT RATIO 22(H) 10 - 20 10:15 AM CDT [facility] eGFR 88(L) >90 mL/min/1.7 3m2 06/01/2025 10:15 AM CDT [facility] Comment:As of 2021, eG FR is calculated by the CKD-EPI creatinine equation without race adjustment. eGFR can be influenced by muscle mass, exercise, and diet. The reported eGFR is an estimation only and is only applicable if the renal function is stable. Blood BLOOD SPECIMEN / Unknown [facility] / Unknown 06/01/2025 9:42 AM CDT 06/01/2025 9:42 AM CDT Nelly MEYERS CHEMISTRY Final Res ult [facility] [address] [place] [address] * URINE CULTURE (06/01/2025 9:20 AM CDT) Only the most recent of2 resultswithin the time period is included. CULTURE No growth (<1,000 CFU/mL) 06/03/2025 9:11 AM CDT [facility] Urine URINE SPECIMEN / Unknown Non-Blood / Unknown 06/01/2025 9:20 AM CDT 06/01/2025 10:07 AM CDT Nelly MEYERS MICROBIOLOGY Final Res ult [facility] [address] [place] [address], * UA W/ SEDIMENT EXAM REFLEXED PER CRITERIA (06/01/2025 9:20 AM CDT) COLOR Yellow Yellow Color 06/01/2025 10:[address] [facility] CLARITY Clear Clear Clarity 06/01/2025 10:[address] [facility] SPECIFIC GRAVITY,URINE 1.020 1.010, 1.015, 1.020, 1.025 06/01/2025 10:[address] [facility] PH,URINE 6.0 6.0, 7.0, 8.0, 5.5, 6.5, 7.5, 8.5 06/01/2025 10:[address] [facility] UROBILINOGEN, QUALITATIVE Normal Normal EU/dl 06/01/2025 10:[address] [facility] PROTEIN, URINE Negative Negative mg/dL 06/01/2025 10:[address] [facility] GLUCOSE, URINE Negative Negative mg/dL 06/01/2025 10:[address] [facility] KETONES,URINE Negative Negative mg/dL 06/01/2025 10:[address] [facility] BILIRUBIN,URI NE Negative Negative 06/01/2025 10:[address] [facility] OCCULT BLOOD,URINE Negative Negative 06/01/2025 10:[address] [facility] NITRITE Negative Negative 06/01/2025 10:[address] [facility] LEUKOCYTE ESTERASE Negative Negative 06/01/2025 10:[address] [facility] Urine URINE SPECIMEN / Unknown Non-Blood / Unknown 06/01/2025 9:20 AM CDT 06/01/2025 10:07 AM CDT us Nelly MEYERS URINE Final Res ult [facility] [address] [place], [place] [id number] * [place] KVNG POST-VOIDING RESIDUAL URINE&/BLADDER CAP (06/01/2025 12:00 AM CDT) us Nelly MEYERS PB - URINARY SYSTEM SERVI TODD Final Result * CT ABDOMEN PELVIS UROGRAM WWO (04/07/2025 11:30 AM CDT) Anatomical Region Laterality [...] For Patients: As a result of the Century Cures Act, medical imaging exams and procedure [...] lymphadenopathy. No acute fracture. Procedure Note Justin Hagna MD - 2025 For Patients: As a [...] Nicholas MPV 12.3 7.5 - 12.5 fL [facility] Blood BLOOD SPECIMEN / Unknown 03/31/2025 3:29 PM CDT 03/31/2025 3:30 PM CDT us Arben Boggs MD HEMATOLOGY Final Resu lt [employer] [facility] [address] [place] [address], [facility] [address] [place] [phone] * COMP METABOLIC PANEL (03/31/2025 3:29 PM CDT) [facility] GLUCOSE 79 65 - 99 mg/dL [facility] [place] Comment: Fasting reference interval UREA NITROGEN (BUN) 25 7 - 25 mg/dL [facility] CREATININE 0.96 0.70 - 1.28 mg/dL [facility] EGFR 80 > OR = 60 mL/min/1. 73m2 [facility] BUN/CREATININE RATIO SEE NOTE: 6 - (calc) [facility] Comment: Not [...] 3:30 PM CDT us Arben Boggs MD CHEMISTRY Final Resu lt [facility] [address] [place] [address], [facility] [address] [place] [address] * (ABNORMAL) POCT Urinalysis Dipstick Only [[id number]] (03/31/2025 2:38 PM CDT) Pathologist [facility] PH 6.0 5.0 - 8.0 [facility] SPECIFIC GRAVITY 1.025 1.001 - 1.035 [facility] GLUCOSE NEGATIVE NEGATIVE [facility] BILIRUBIN 1+(A) NEGATIVE [facility] Comment: A false positive may be caused by the drug Lodine. For any presumptive positive bilirubin, consider confirmation by serum bilirubin if clinically indicated. KETONES NEGATIVE NEGATIVE [facility] OCCULT BLOOD 3+(A) NEGATIVE [facility] PROTEIN 3+(A) NEGATIVE [facility] NITRITE NEGATIVE NEGATIVE [facility] LEUKOCYTE ESTERASE NEGATIVE NEGATIVE [facility] Urine URINE SPECIMEN / Unknown 03/31/2025 2:38 PM CDT 03/31/2025 2:38 PM CDT us Arben Boggs MD URINE Final Resu lt [facility] [address] [place] [address], [facility] [address] [place] [address] * (ABNORMAL) URINALYSIS MICROSCOPIC [71471.1] - routine (03/31/2025 2:37 PM CDT) RBC >100(A) 0-2, None Seen /HPF 04/01/2025 1:24 AM CDT [facility] WBC 6-10(A) 0-2, 3-5, None Seen /HPF 04/01/2025 1:24 AM CDT [facility] BACTERIA None Seen None Seen, Rare, Few Bacteria/ HPF 04/01/2025 1:24 AM CDT [facility] EPITHELIAL CELLS None Seen None Seen, Few Epi/HPF 04/01/2025 1:24 AM CDT [facility] HYALINE CASTS 0-2 0-2, 3-5 /LPF 04/01/2025 1:24 AM CDT [facility] Urine URINE SPECIMEN / Unknown Non-Blood / Unknown 03/31/2025 2:37 PM CDT 03/31/2025 2:37 PM CDT us Arben Boggs MD URINE Final Resu lt [facility] [address] [place] [address], from Last [address] [place] [address] MEDICARE PB ONLY MEDICARE PART A HB ONLY MEDICARE PART B HB ONLY Advance Directives * Full Code (Latest Code Status on File) Date Activated Date Inactivated Comments 06/12/2025 9:48 AM 06/12/2025 6:48 PM Should be disc ussed pre operatively with anesthesia or surgeon Question Answer Comments Code Status Discussion: Not Discussed Care Teams Glaze Carrier Relationship Specialty Start Date End Date Votel, Gary Frederick MD [address] [place] [address] PCP - General Family Practice 06/03/25 Nelly Galeas PA [address] [place] [address] Physician Information Assurance Engineer 06/01/25
[2025-06-19 01:48] VITALS: BP 154/86; PULSE 76; RESP 18; TEMP 36.9; O2SAT 94; BMI 19.2
--- NOTE | 2025-06-19 02:03 | ED.GENADULT ---
"HPI - General Adult General Chief complaint: Urogenital Problems, Male Stated complaint: blocked urine Time Seen by Provider: 06/19/25 01:42 History of Present Illness HPI narrative: Patient is 80-year-old gentleman who had intervention for kidney stones with stent placement approximately a week ago was now unable to pass his urine. Had no fevers no chills no night sweats no cough no shortness of breath no abdominal pain no nausea no vomiting. He can only passes small dribbles of urine and feels very uncomfortable with suprapubic tenderness. Patient does take oxybutynin but has had no improvement. No previous history of urinary retention Related Data Home Medications ?Medication ?Instructions ?Recorded ?Confirmed aspirin 325 mg capsule 325 mg PO DAILY 05/08/25 05/08/25 tamsulosin 0.4 mg capsule 0.4 mg PO DAILY 05/08/25 05/08/25 Allergies Allergy/AdvReac Type Severity Reaction Status Date / Time No Known Drug Allergies Allergy Verified 06/19/25 01:53 Review of Systems Status of ROS: Reports: 10 or more systems reviewed and unremarkable except as noted in History and below Exam Narrative: Exam Narrative: EXAM GENERAL: Patient appears uncomfortable. EYES: No scleral icterus. ENT: Tympanic membranes and oropharynx normal. THYROID: no thyroid nodules or thyromegaly. LYMPH: No supraclavicular or cervical lymphadenopathy. SKIN: Visible skin seen during exam normal or with benign process only. EXT: No dependent lower extremity pedal edema. HEART: Regular rate and rhythm with no murmurs, rubs, or gallops. LUNGS: Clear to auscultation bilaterally with no crackles or wheezes. ABD: Soft, non tender, non distended. PSYCH: Good eye contact, speech is not pressured. Const: Vital Signs, click to edit/add: Vital Signs - 24 hr 06/19/25 01:48 Temperature 98.5 F Pulse Rate [Pulse Oximeter] 76 Respiratory Rate 18 Blood Pressure [Ri ght Upper Arm] 154/86 H Pulse Oximetry 94 Oxygen Delivery Me thod Room Air Course Course ED Course: Patient seen and examined. Urine bladder scan and Lyon catheter pending. I Vital Signs Vital signs: Initial Vital Signs Temperature 98.5 F 06/19/25 01:48 Temperature Source Temporal Artery Scan 06/19/25 01:48 Pulse Rate 76 06/19/25 01:48 Pulse Rhythm Regular 06/19/25 01:48 Respiratory Rate 18 06/19/25 01:48 Blood Pressure 154/86 H 06/19/25 01:48 Blood Pressure Mean 108 H 06/19/25 01:48 Pulse Oximetry 94 06/19/25 01:48 Oxygen Delivery Method Room Air 06/19/25 01:48 Vital Signs Temperature 98.5 F 06/19/25 01:48 Pulse Rate 76 06/19/25 01:48 Respiratory Rate 18 06/19/25 01:48 Blood Pressure 154/86 H 06/19/25 01:48 Pulse Oximetry 94 06/19/25 01:48 Oxygen Delivery Method Room Air 06/19/25 01:48 Temperature 98.5 F 06/19/25 01:48 Pulse Rate 76 06/19/25 01:48 Respiratory Rate 18 06/19/25 01:48 Blood Pressure 154/86 H 06/19/25 01:48 Pulse Oximetry 94 06/19/25 01:48 Oxygen Delivery Method Room Air 06/19/25 01:48 Medical Decision Making MDM Narrative Medical decision making narrative: Patient presents with a urinary retention following a urology procedure. I did place Lyon catheter and he has 1600 mL out. He does have a follow-up in approximately 3 days with Urology will let him have a catheter in him continue his outpatient medications as previously prescribed. Urology can assess removal of the catheter at his follow-up visit. Discharge Plan Discharge Clinical Impression: Acute urinary retention Patient Disposition: Home, Self-Care Condition: Stable Instructions: Urinary Retention in Men (ED) Additional Instructions: Lyon catheter in Follow-up with urology on Sunday. Activity Level: No Restrictions Discharge Diet: Regular Prescriptions: No Action tamsulosin 0.4 mg capsule 0.4 mg PO DAILY aspirin 325 mg capsule 325 mg PO DAILY Follow Up/Referrals: Gary Chowdhury MD [Primary Care Provider, Family Practice] Stand Alone Forms: [employer] | [employer] Info Instructions"
[2025-06-19 02:56] VITALS: PULSE 86; RESP 18
== END 2025-06-19 03:11 | disposition home or self-care (01) ==
PROVIDERS: Emergency Provider Internal Medicine; PCP Family Medicine
DX: R33.9 Retention of urine, unspecified (principal); Z79.899 Other long term (current) drug therapy
CPT/HCPCS: 51702; 99283